=== PATIENT | male | born 1965 | race Caucasian/White ===

== ENCOUNTER 2019-02-09 15:17 | Emergency (ER) | payer BC, SELFPAY ==
[2019-02-09] MEDS ORDERED: Ketorolac Tromethamine 60 MG/2 ML VIAL ONE (15:47)
--- NOTE | 2019-02-09 16:43 | RAD ---
LEFT RIBS GREATER THAN OR EQUAL TO TWO VIEW WITH A PA CHEST X-RAY: 02/09/19 HISTORY: Injury. Trauma. COMPARISON: None. FINDINGS: Lungs are hypoinflated with vascular crowding. There is a nondisplaced anterior left 6th and 7th rib fracture. No pneumothorax. IMPRESSION: Nondisplaced anterior left 6th and 7th rib fractures. No underlying pneumothorax. POS: [facility]
== END 2019-02-09 16:58 | disposition home or self-care (01) ==
LOC: ERS 15:17
DX: S22.42XA Multiple fractures of ribs, left side, initial encounter for closed fracture (principal); W17.89XA Other fall from one level to another, initial encounter
CPT/HCPCS: 96372; J1885